=== PATIENT | male | born 1980 | race African-American/Black ===

== ENCOUNTER 2021-04-06 13:09 | Emergency (ER) | payer OTHER ==
[~2021-04-06] VITALS: Ht 170.2 cm; Wt 90.7 kg
[2021-04-06] MEDS ORDERED: LANTUS SUBQ (13:18)
[2021-04-06] MEDS ORDERED: HUMALOG100 UNIT/1 SUBQ (13:18)
[2021-04-06] MEDS ORDERED: INVEGA TRI273 MG/0.8 INJECTION (13:19)
[2021-04-06] MEDS ORDERED: METHOCARBAMOL500 M2 PO (14:22)
[2021-04-06] MEDS ORDERED: IBUPROFEN 600600 M1 PO (14:22)
[2021-04-06 14:45] VITALS: BP 118/80
== END 2021-04-06 14:44 | disposition home or self-care (01) ==
LOC: ER 13:09
DX: M54.5 Low back pain (principal); E11.9 Type 2 diabetes mellitus without complications; Z79.4 Long term (current) use of insulin; Z79.899 Other long term (current) drug therapy